=== PATIENT | male | born 1950 | race Caucasian/White ===

== ENCOUNTER 2020-03-19 10:27 | Outpatient (REF) | payer MEDICARE, SELFPAY | END 2020-03-19 10:28 | disposition home or self-care (01) | LOC: HO.LAB 10:27 | PROVIDERS: Visit Provider Internal Medicine | DX: Z20.828 Contact with and (suspected) exposure to other viral communicable diseases (principal) | CPT/HCPCS: C9803; U0003 ==

== ENCOUNTER 2021-03-21 07:17 | Day surgery (SDC) | payer MEDICARE, SELFPAY ==
--- NOTE | 2021-03-18 10:46 | P.CONAN_ITS ---
Documented by User: Barbara Matute NP 03/18/21 10:46 HPI - Anesthesia Eval Consult details Narrative: 70yo M for Upper Endoscopy and Colonoscopy [facility] Past Medical History Medical History (Updated 02/06/20 @ 15:19 by Guillermina Saenz, RN) Bales's esophagus Elevated cholesterol GERD (gastroesophageal reflux disease) HTN (hypertension) Sigmoid diverticulitis Sleep apnea Surgical History Surgical History (Updated 02/06/20 @ 15:19 by Guillermina Saenz, RN) History of bunionectomy History of esophagogastroduodenoscopy (EGD) Hx laparoscopic cholecystectomy Hx of colonoscopy Hx of shoulder surgery Hx of thumb surgery Social History Social History Are you a primary career technical education instructor to a significant other at home: No Do you presently have visiting nurse or other home services: No Patient Tobacco Use Status: Never used Tobacco Second Hand Smoke Exposure: No Use of substances other than those prescribed or required for medical reasons: No Are you DNR?: No Advance Directives: No Advance Directives Information Provided: Yes Advance Directives on File: No Meds Allergies Allergy/AdvReac Type Severity Reaction Status Date / Time RITU Inhibitors Allergy Intermediate COUGH Verified 03/14/21 15:06 [RITU INHIBITORS] latex [LATEX] Allergy Intermediate RASH-FACIAL Verified 03/14/21 15:06 rubber touching face Allergy Unknown rash Uncoded 03/14/21 15:06 Home Medications Medication Instructions Recorded Confirmed Last Taken Type Lactobacillus acidophilus 10 10,000 mmu cells PO DAILY 02/06/20 03/14/21 Unknown History billion cell capsule (Probiotic) atorvastatin 40 mg tablet 40 mg PO BEDTIME 02/06/20 03/14/21 Unknown History esomeprazole magnesium 40 mg 40 mg PO DAILY 02/06/20 03/14/21 Unknown History capsule,delayed release glucosamine sulfate 500 mg tablet 500 mg PO BID 02/06/20 03/14/21 Unknown History (Glucosamine) lisinopril 20 1 tab PO DAILY 02/06/20 03/14/21 Unknown History mg-hydrochlorothiazide 25 mg tablet Exam Exam Date and Time: March 18, 2021 1046 Assessment and Plan Assessment Anesthesia Assessment: Chart Reviewed Documented by User: Ryan French 03/21/21 10:06 [facility] Past Medical History Medical History (Updated 02/06/20 @ 15:19 by Guillermina Saenz, CHERISE) Bales's esophagus Elevated cholesterol GERD (gastroesophageal reflux disease) HTN (hypertension) Sigmoid diverticulitis Sleep apnea Functional capacity: independent ambulation Family History Family history of problems with anesthesia: No Surgical History Surgical History (Updated 02/06/20 @ 15:19 by Guillermina Saenz, RN) History of bunionectomy History of esophagogastroduodenoscopy (EGD) Hx laparoscopic cholecystectomy Hx of colonoscopy Hx of shoulder surgery Hx of thumb surgery History of Problems with Anesthesia: Yes (Awarness under [place] 20 years ago . ) Social History Social History Are you a primary career technical education instructor to a significant other at home: No Do you presently have visiting nurse or other home services: No Patient Tobacco Use Status: Never used Tobacco Second Hand Smoke Exposure: No Use of substances other than those prescribed or required for medical reasons: No Are you DNR?: No Advance Directives: No Advance Directives Information Provided: Yes Advance Directives on File: No Meds Allergies Allergy/AdvReac Type Severity Reaction Status Date / Time RITU Inhibitors Allergy Intermediate COUGH Verified 03/14/21 15:06 [RITU INHIBITORS] latex [LATEX] Allergy Intermediate RASH-FACIAL Verified 03/14/21 15:06 rubber touching face Allergy Unknown rash Uncoded 03/14/21 15:06 Home Medications Medication Instructions Recorded Confirmed Last Taken Type Lactobacillus acidophilus 10 10,000 mmu cells PO DAILY 02/06/20 03/14/21 Unknown History billion cell capsule (Probiotic) atorvastatin 40 mg tablet 40 mg PO BEDTIME 02/06/20 03/14/21 Unknown History esomeprazole magnesium 40 mg 40 mg PO DAILY 02/06/20 03/14/21 Unknown History capsule,delayed release glucosamine sulfate 500 mg tablet 500 mg PO BID 02/06/20 03/14/21 Unknown History (Glucosamine) lisinopril 20 1 tab PO DAILY 02/06/20 03/14/21 Unknown History mg-hydrochlorothiazide 25 mg tablet Exam Airway Mallampati Class: II TM Dist: >3cm Neck ROM: Full Loose/Missing/Broken Teeth: Yes (Caps and crowns ) Heart: rrr Lungs: bl breath sounds Assessment and Plan Final Anesthetic Review Family History of Problems with Anesthesia: No History of Problems with Anesthesia: Yes (Awarness under [place] 20 years ago . ) NPO: Yes ASA Class: II Final Preanesthetic Review: Meds/Allgs Chart Reviewed and Anes Risks/Benef Reviewed Patient Risk: Intermediate Procedure Risk: Intermediate Anesthetic Plan Anesthetic Plan: MAC: Disposition: Standard PACU
[2021-03-21 08:56] VITALS: BMI 27.1
[2021-03-21 09:05] VITALS: BP 178/102; PULSE 92; RESP 16; TEMP 36.5; O2SAT 99
[2021-03-21] MEDS: Lactated Ringers 1,000 ML 100 ML IVCONT (09:14)
--- NOTE | 2021-03-21 11:35 | PM.OP ---
Brief Operative Note Date of Service: 03/21/21 Pre-op diagnosis: Bales's, Screening Post-op diagnosis: other (Hiatal hernia, Colon polyps) Procedure: EGD with biopsies. Colonoscopy to the cecum with hot snare polypectomy/clipping x 2/marking with ink of ascending colon polyp, and cold snare polypectomy of proximal transverse colon polyp with clipping x 3 Surgeon: Giles Baker Anesthesia: MAC Was an Institutional Asset Manager used for this Procedure?: No Estimated blood loss (mL): 2.0 Pathology: other (A. EG Junction at 38cm B. Ascending colon polyp C.Proximal transverse colon polyp) Condition: stable Disposition: PACU
[2021-03-21 11:36] VITALS: BP 115/71; PULSE 64; RESP 15; TEMP 36.1; O2SAT 99
[2021-03-21 11:53] VITALS: BP 132/82; PULSE 74; RESP 18; TEMP 36.2; O2SAT 100
--- NOTE | 2021-03-21 20:25 | OP_ITS ---
SURGEON: Giles Baker MD INDICATIONS: The patient presents for evaluation of colorectal cancer screening, personal history of colon polyps, and Bales's esophagus. Full consent has been obtained from him for this, including risks of bleeding and perforation. PREOPERATIVE DIAGNOSIS: POSTOPERATIVE DIAGNOSIS: PROCEDURE PERFORMED: Esophagogastroduodenoscopy with biopsies, and colonoscopy to the cecum and terminal ileum with hot snare polypectomy, placement of resolution clips, marking with submucosal ink, and cold snare polypectomy. ESTIMATED BLOOD LOSS: COMPLICATIONS: ANESTHESIA: Monitored anesthesia care. ASSISTANTS: SPECIMENS: PREOPERATIVE DIAGNOSES: Gastroesophageal reflux, Bales's esophagus, personal history of colon polyps, and colorectal cancer screening. POSTOPERATIVE DIAGNOSES: Gastroesophageal reflux, Bales's esophagus, personal history of colon polyps, and colorectal cancer screening, hiatal hernia, colon polyps, diverticulosis, and internal hemorrhoids. DESCRIPTION OF PROCEDURE: The patient was placed in the left lateral decubitus position. The Olympus video gastroscope was passed in the posterior oropharynx and upper esophagus under direct vision. The scope was passed slowly into the distal esophagus. The gastroesophageal junction appeared at 38 cm. There was some very slight irregularity at this level, but no evidence of esophagitis. The scope entered into the stomach. There was a small hiatal hernia. The scope was advanced to pylorus and the duodenum was cannulated to the descending portion. The duodenum including the bulb appeared normal without mass or ulceration. Scope was withdrawn back into the stomach. The gastric antrum and body appeared normal with good peristalsis. The scope was retroflexed visualizing the proximal stomach carefully which appeared normal, without any sign of mass or ulceration. The scope was straightened. The scope was withdrawn back into the esophagus. Biopsies were obtained at the EG junction at 38 cm. Proximal to this, the esophageal mucosa appeared normal. The scope was withdrawn from the patient. He was turned around for the colonoscopy. The digital rectal exam revealed no abnormalities. The Olympus video pediatric colonoscope was entered into the rectum and advanced easily to the cecum. Once in the cecum, I did identify normal-appearing cecal pouch with appendiceal orifice and a normal-appearing ileocecal valve. The terminal ileum was cannulated and appeared normal. The scope was withdrawn back in the colon. The entire cecum and ileocecal valve appeared normal. The scope was slowly withdrawn assessing all mucosal surfaces carefully. Preparation was excellent. In the mid-ascending colon, was a somewhat lobulated and somewhat flat polyp overlapping a single fold. The tissue appeared to be consistent with either a hyperplastic polyp or a serrated polyp. It was approximately 15 mm in diameter. Given its size and appearance, with the possibility of it being a serrated polyp, I did remove it entirely with a hot snare polypectomy in piecemeal fashion. Pieces were recovered by suction. The polypectomy site appeared clean, without any sign of residual polyp nor bleeding. Two clips were applied with good deployment and good hemostasis. I also placed a submucosal ink kevin just proximal and just distal to the lesion. In the proximal transverse colon, was an approximately 6 to 8 mm polyp, which was removed with a cold snare polypectomy. The specimen was retrieved by suction. There did appear to be some persistent oozing at the polypectomy site and I therefore placed a total of 3 resolution clips with ultimately good deployment and good hemostasis. I did not visualize any other polyps, colitis, nor angiodysplasia. There was a mild amount of sigmoid diverticulosis. In the rectum, scope was retroflexed visualizing internal hemorrhoids, but no other pathology. The rectal mucosa appeared normal. The scope was straightened out and withdrawn from the patient. He tolerated both procedures well and was returned to recovery area in stable condition. IMPRESSION: 1. Hiatal hernia, gastroesophageal reflux, history of Bales's esophagus. 2. Colon polyps. 3. Diverticulosis. 4. Internal hemorrhoids. PLAN: The results of the pathology will be checked. I would recommend a repeat upper endoscopy in 3 years for further surveillance in regard to the Bales's esophagus assuming there is no dysplasia. He will continue his PPI treatment for that. Further recommendations regarding colonoscopy will depend upon the findings on the pathology of the colon polyps. If the larger ascending colon polyp is a serrated polyp, I would recommend a repeat colonoscopy within 1 year. He was advised not to use any aspirin and NSAIDs for 1 week. MD JOSHUA Leong/PAUL / [id number] KORY
== END 2021-03-21 13:03 | disposition home or self-care (01) ==
PROVIDERS: PCP Physician Assistant Medical; Visit Provider Internal Medicine
PROC: (CPT 45385; principal; 2021-03-21 09:20)
DX: Z12.11 Encounter for screening for malignant neoplasm of colon (principal); Z86.010 Personal history of colon polyps; Z83.71 Family history of colonic polyps; D12.2 Benign neoplasm of ascending colon; D12.3 Benign neoplasm of transverse colon; K57.30 Diverticulosis of large intestine without perforation or abscess without bleeding; K64.8 Other hemorrhoids; K22.70 Barrett's esophagus without dysplasia; K21.9 Gastro-esophageal reflux disease without esophagitis; K44.9 Diaphragmatic hernia without obstruction or gangrene; Z87.19 Personal history of other diseases of the digestive system; G47.33 Obstructive sleep apnea (adult) (pediatric); E78.5 Hyperlipidemia, unspecified; I10 Essential (primary) hypertension; Z79.899 Other long term (current) drug therapy
CPT/HCPCS: 45385; 45381; 43239; 88305

== ENCOUNTER 2023-01-29 07:10 | Day surgery (SDC) | payer MEDICARE, SELFPAY ==
--- NOTE | 2023-01-25 13:52 | P.CONAN_ITS ---
Documented by User: Barbara Matute NP 01/25/23 13:53 HPI - Anesthesia Eval Consult details Narrative: 72yo M for Colonoscopy [facility] Past Medical History Medical History HLD (hyperlipidemia) Sleep apnea Sigmoid diverticulitis Bales's esophagus GERD (gastroesophageal reflux disease) Elevated cholesterol HTN (hypertension) Family History Family history of problems with anesthesia: No Surgical History Surgical History History of back surgery Hx of thumb surgery History of bunionectomy Hx of shoulder surgery Hx laparoscopic cholecystectomy History of esophagogastroduodenoscopy (EGD) Hx of colonoscopy History of Problems with Anesthesia: Yes (Awarness under [place] 20 years ago . ) Social History Social History Are you a primary lawn care technician to a significant other at home: No Do you presently have visiting nurse or other home services: No Patient Tobacco Use Status: Former Tobacco user Second Hand Smoke Exposure: No Substance Use Frequency: Daily Have you been hit, kicked, punched, or otherwise hurt by someone within the past year? If so, by whom?: No Are you DNR?: No Advance Directives: No Advance Directives Information Provided: Yes Recently lost weight without trying: No Eating poorly because of decreased appetite: No Nutrition Risks: No Nutritional Risk Poor oral hygiene: No Meds Allergies Allergy/AdvReac Type Severity Reaction Status Date / Time RITU Inhibitors Allergy Intermediate COUGH Verified 03/14/21 15:06 [RITU INHIBITORS] latex [LATEX] Allergy Intermediate RASH-FACIAL Verified 03/14/21 15:06 rubber touching face Allergy Unknown rash Uncoded 03/14/21 15:06 Home Medications Medication Instructions Recorded Confirmed Last Taken Type atorvastatin 40 mg tablet 40 mg PO BEDTIME 02/06/20 03/14/21 Unknown History esomeprazole magnesium 40 mg 40 mg PO DAILY 02/06/20 03/14/21 Unknown History capsule,delayed release lisinopril 20 1 tab PO DAILY 02/06/20 03/14/21 Unknown History mg-hydrochlorothiazide 25 mg tablet psyllium packet 01/26/23 01/26/23 Unknown History Exam Exam Date and Time: January 25, 2023 1352 Assessment and Plan Assessment Anesthesia Assessment: Chart Reviewed Final Anesthetic Review Family History of Problems with Anesthesia: No History of Problems with Anesthesia: Yes (Awarness under [place] 20 years ago . ) Documented by User: Tracy Arceo MD 01/29/23 09:20 [facility] Active Problems Active Problems: FARTUN. Not using CPAP. Cannot tolerate HTN GERD HLD Past Medical History Medical History HLD (hyperlipidemia) Sleep apnea Sigmoid diverticulitis Bales's esophagus GERD (gastroesophageal reflux disease) Elevated cholesterol HTN (hypertension) Surgical History Surgical History History of back surgery Hx of thumb surgery History of bunionectomy Hx of shoulder surgery Hx laparoscopic cholecystectomy History of esophagogastroduodenoscopy (EGD) Hx of colonoscopy History of Problems with Anesthesia: Yes (Awareness under [place] 20 years ago . ) Social History Social History Are you a primary lawn care technician to a significant other at home: No Do you presently have visiting nurse or other home services: No Patient Tobacco Use Status: Former Tobacco user Second Hand Smoke Exposure: No Substance Use Frequency: Daily Have you been hit, kicked, punched, or otherwise hurt by someone within the past year? If so, by whom?: No Are you DNR?: No Advance Directives: No Advance Directives Information Provided: Yes Recently lost weight without trying: No Eating poorly because of decreased appetite: No Nutrition Risks: No Nutritional Risk Poor oral hygiene: No Meds Allergies Allergy/AdvReac Type Severity Reaction Status Date / Time RITU Inhibitors Allergy Intermediate COUGH Verified 03/14/21 15:06 [RITU INHIBITORS] latex [LATEX] Allergy Intermediate RASH-FACIAL Verified 03/14/21 15:06 rubber touching face Allergy Unknown rash Uncoded 03/14/21 15:06 Home Medications Medication Instructions Recorded Confirmed Last Taken Type atorvastatin 40 mg tablet 40 mg PO BEDTIME 02/06/20 03/14/21 Unknown History esomeprazole magnesium 40 mg 40 mg PO DAILY 02/06/20 03/14/21 Unknown History capsule,delayed release lisinopril 20 1 tab PO DAILY 02/06/20 03/14/21 Unknown History mg-hydrochlorothiazide 25 mg tablet psyllium packet 01/26/23 01/26/23 Unknown History Exam Height,Weight and Vital Signs: Height 6 ft Weight 90.718 kg Vital Signs Temp Pulse Resp BP Pulse Ox O2 Del Method 01/29/23 08:24 97.3 F 78 18 169/98 H 98 Room Air Airway Mallampati Class: II TM Dist: >3cm Neck ROM: Full (Good extension ) Loose/Missing/Broken Teeth: Yes (Missing some teeth. Denies broken or loose teeth) Heart: RRR Lungs: CTAB Assessment and Plan Assessment Anesthesia Assessment: Anesthesia Plan Discussed Final Anesthetic Review History of Problems with Anesthesia: Yes (Awareness under [place] 20 years ago . ) NPO: Yes ASA Class: III Final Preanesthetic Review: No Changes in Pt Med Stat, Meds/Allgs Chart Reviewed, Consent Obtained/Reviewed and Anes Risks/Benef Reviewed Patient Risk: Intermediate Procedure Risk: Low Assessment/Block/Sedation in SS: Assess/Block/Sedation-SS Anesthetic Plan Anesthetic Plan: MAC: Disposition: Standard PACU
[2023-01-29 08:24] VITALS: BP 169/98; PULSE 78; RESP 18; TEMP 36.3; O2SAT 98; BMI 27.1
[2023-01-29] MEDS: Lactated Ringers 1,000 ML 100 ML IVCONT (08:29)
[2023-01-29 09:59] VITALS: BP 132/71; PULSE 75; RESP 13; TEMP 36.1; O2SAT 100
--- NOTE | 2023-01-29 10:02 | P.BOP_ITS ---
Brief Operative Note Date of Service: 01/29/23 Pre-op diagnosis: Screening Post-op diagnosis: other (Colon polyp) Procedure: Colonoscopy to the cecum and TI with hot snare polypectomy x 1, and biopsies Surgeon: Giles Baker MD Anesthesia: MAC Was an Bench Inspector used for this Procedure?: No Estimated blood loss (mL): 2.0 Pathology: other (A. Biopsies from previous polypectomy site in proximal Ascending Colon B. Proximal Ascending colon polyp) Condition: stable
[2023-01-29 10:14] VITALS: BP 119/77; PULSE 63; RESP 15; O2SAT 100
[2023-01-29 10:29] VITALS: BP 119/97; PULSE 60; RESP 16; TEMP 36.2; O2SAT 100
--- NOTE | 2023-01-29 11:48 | OP_ITS ---
DATE OF SERVICE: 01/29/2023 SURGEON: Giles Baker MD INDICATIONS: The patient presents for followup of personal history of colon polyps and colorectal cancer screening. Full consent obtained from him for this, including risks of bleeding and perforation. PREOPERATIVE DIAGNOSIS: POSTOPERATIVE DIAGNOSIS: PROCEDURE PERFORMED: Colonoscopy to cecum and terminal ileum with hot snare polypectomy, and biopsies. ESTIMATED BLOOD LOSS: COMPLICATIONS: ANESTHESIA: Monitored anesthesia care. ASSISTANTS: SPECIMENS: PREOPERATIVE DIAGNOSES: Colorectal cancer screening and personal history of colon polyps. POSTOPERATIVE DIAGNOSES: Colorectal cancer screening and personal history of colon polyps, colon polyp, diverticulosis and internal hemorrhoids. DESCRIPTION OF PROCEDURE: The patient was placed in the left lateral decubitus position. The digital rectal exam revealed no abnormalities. The Olympus video pediatric colonoscope was entered into the rectum and advanced easily to the cecum. Once in the cecum, I did identify normal-appearing cecal pouch with appendiceal orifice and a normal-appearing ileocecal valve. The terminal ileum was cannulated and appeared normal. The scope was withdrawn back in the colon. The entire cecum and ileocecal valve appeared normal. The scope was then slowly withdrawn assessing all mucosal surfaces carefully. Preparation was excellent. In the proximal ascending colon the previously placed submucosal ink barraza were noted. Right in between those was an area of some scarring, consistent with a previous polypectomy. There was 1 small, several mm area of possibly some residual polyp in the area of scarring, although I suspect this was some benign tissue. Biopsies were obtained from it and completely removed it. In the proximal ascending colon, near the most proximal ink kevin, but separate from the polypectomy site, was an approximately 1.2 cm raised, but lobulated probable serrated polyp, which was removed by hot snare polypectomy and recovered by suction. The polypectomy site appeared clean, without any sign of residual polyp nor bleeding. I did not visualize any other polyps, colitis, nor angiodysplasia. There was a moderate amount of sigmoid diverticulosis. In the rectum, scope was retroflexed visualizing prominent internal hemorrhoids, but no other pathology. The rectal mucosa appeared normal. Scope was straightened and withdrawn from the patient. He tolerated the procedure well and was returned to recovery area in stable condition. IMPRESSION: 1. Colon polyp. 2. Diverticulosis. 3. Internal hemorrhoids. PLAN: The results of the pathology will be checked. Given his previous history and today's findings, I would recommend a repeat colonoscopy within 2-3 years. He was advised not to use any aspirin or NSAIDs for at least 1 week. He will otherwise see me on a p.r.n. basis. MD JOSHUA Leong/PAUL / [id number] MTDD
== END 2023-01-29 11:27 | disposition home or self-care (01) ==
PROVIDERS: PCP Physician Assistant Medical; Visit Provider Internal Medicine
PROC: 0DJD8ZZ Inspection of Lower Intestinal Tract, Via Natural or Artificial Opening Endoscopic (ICD-10-PCS; CPT 45378; principal; 2023-01-29 08:30)
DX: Z12.11 Encounter for screening for malignant neoplasm of colon (principal); Z86.010 Personal history of colon polyps; D12.2 Benign neoplasm of ascending colon; K57.30 Diverticulosis of large intestine without perforation or abscess without bleeding; Z87.19 Personal history of other diseases of the digestive system; K64.8 Other hemorrhoids; K21.9 Gastro-esophageal reflux disease without esophagitis; E78.5 Hyperlipidemia, unspecified; I10 Essential (primary) hypertension; K22.70 Barrett's esophagus without dysplasia; G47.33 Obstructive sleep apnea (adult) (pediatric); Z79.899 Other long term (current) drug therapy; Z88.8 Allergy status to other drugs, medicaments and biological substances; Z91.040 Latex allergy status; Z87.891 Personal history of nicotine dependence; Z98.890 Other specified postprocedural states
CPT/HCPCS: 45385; 45380; 88305

== ENCOUNTER 2023-02-12 09:53 | Outpatient (AMB) | payer MEDICARE, SELFPAY ==
--- NOTE | 2023-02-12 09:54 | MHC.OFFVIS ---
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 He states his pain started a few months ago and denies injury. He had x rays updated in the office today. He has not tried any ice, heat or over the counter medications. 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 He has pain with daily activity, worse with using stairs or standing from a seated position. He says his pain began several months ago and has worsened. He says his pain varies between an ache and a burning sensation in the front of his knees. He denies any numbness or tingling. He denies any prior treatment. He denies any falls or known injury. He is not interested in surgery, most of his time is spent caring for his , who has Alzheimers. [facility] Medical History HLD (hyperlipidemia) Sleep apnea Sigmoid diverticulitis Bales's esophagus GERD (gastroesophageal reflux disease) Elevated cholesterol HTN (hypertension) Surgical History History of back surgery Hx of thumb surgery History of bunionectomy Hx of shoulder surgery Hx laparoscopic cholecystectomy History of esophagogastroduodenoscopy (EGD) Hx of colonoscopy Social History Are you a primary transition of care specialist to a significant other at home: No Do you presently have visiting nurse or other home services: No Patient Tobacco Use Status: Former Tobacco user Second Hand Smoke Exposure: No Review of Systems Const All systems reviewed & are unremarkable except as noted in HPI and below Physical Exam Const General: no acute distress, alert and awake Orientation/consciousness: patient oriented x3 HEENT Head: Yes normocephalic and Yes atraumatic Eyes EOM: EOMs intact bilaterally Resp Effort & Inspection: normal respiratory effort and able to speak in complete sentences Cardio Jugular venous distension: no JVD Skin General skin exam: turgor normal Rashes: no rashes Neuro General: patient oriented x3 Extrem Other: nl gait full rom retropatellar ttp, mild, R>L Psych Appearance: grossly normal Affect: normal affect Attitude: cooperative Results Reviewed Results Reviewed: Mild bilateral PF OA. Otherwise unremarkable Assessment & Plan Assessment & Plan (1) Osteoarthritis of right knee: Code(s): M17.11 - Unilateral primary osteoarthritis, right knee Plan: This is a 72 year old man with bilateral knee PF OA. He has some pain with daily activity, worse with standing from a seated position or using stairs. He denies any prior treatment. I discussed his diagnosis and treatment options. He is not particularly limited in his function and his pain is tolerable, he is not interested in injections today. I recommend NSAIDs and he be mindful to not push through pain. If his symptoms persist or worsen he can follow up to discuss injections. Otherwise, follow up prn. (2) Osteoarthritis of left knee: Code(s): M17.12 - Unilateral primary osteoarthritis, left knee Plan Scribed for Anthony Ludwig MD by Julio Kahn, medical assistant, on 02/12/23 at 10:15 AM, EST. Orders: Orders XR knee RT 2V 02/12/23 M25.569 - Pain in unspecified knee XR knee standing BI 02/12/23 M25.569 - Pain in unspecified knee XR knee LT 2V 02/12/23 M25.569 - Pain in unspecified knee Coding Level of Care Code New Pt Level 3 (84860) Diagnoses Osteoarthritis of right knee M17.11 Osteoarthritis of left knee M17.12
== END 2023-02-12 10:34 | disposition home or self-care (01) ==
PROVIDERS: PCP Physician Assistant Medical; Visit Provider Orthopaedic Surgery
DX: M17.0 Bilateral primary osteoarthritis of knee (principal)
CPT/HCPCS: 99203

== ENCOUNTER 2023-02-12 09:53 | Outpatient (REF) | payer MEDICARE, SELFPAY ==
--- NOTE | ~2023-02-12 | XR_ITS ---
EXAMINATION: XR KNEE STANDING, BILATERAL XR KNEE, RIGHT XR KNEE, LEFT CLINICAL INFORMATION: Knee pain. COMPARISON: None available. TECHNIQUE: Bilateral standing AP views of the knees with two additional views of each knee. FINDINGS: No significant abnormality is seen involving bones, joints or soft tissues. No chondrocalcinosis. No significant joint space narrowing. No joint effusions. XR/XR knee LT 2V IMPRESSION: Unremarkable examination.
--- NOTE | ~2023-02-12 | XR_ITS ---
EXAMINATION: XR KNEE STANDING, BILATERAL XR KNEE, RIGHT XR KNEE, LEFT CLINICAL INFORMATION: Knee pain. COMPARISON: None available. TECHNIQUE: Bilateral standing AP views of the knees with two additional views of each knee. FINDINGS: No significant abnormality is seen involving bones, joints or soft tissues. No chondrocalcinosis. No significant joint space narrowing. No joint effusions. XR/XR knee standing BI IMPRESSION: Unremarkable examination.
--- NOTE | ~2023-02-12 | XR_ITS ---
EXAMINATION: XR KNEE STANDING, BILATERAL XR KNEE, RIGHT XR KNEE, LEFT CLINICAL INFORMATION: Knee pain. COMPARISON: None available. TECHNIQUE: Bilateral standing AP views of the knees with two additional views of each knee. FINDINGS: No significant abnormality is seen involving bones, joints or soft tissues. No chondrocalcinosis. No significant joint space narrowing. No joint effusions. XR/XR knee RT 2V IMPRESSION: Unremarkable examination.
== END 2023-02-12 09:54 | disposition home or self-care (01) ==
LOC: HO.HOSX 09:53
PROVIDERS: PCP Physician Assistant Medical; Visit Provider Orthopaedic Surgery
DX: M17.0 Bilateral primary osteoarthritis of knee (principal); Z79.899 Other long term (current) drug therapy
CPT/HCPCS: 73560; 73565; 99202

== ENCOUNTER 2024-02-18 10:38 | Emergency (ER) | payer MEDICARE, SELFPAY ==
--- NOTE | ~2024-02-18 | CT_ITS ---
EXAMINATION: CT ABDOMEN AND PELVIS WITH CONTRAST CLINICAL INFORMATION: Left lower quadrant abdominal pain with history of diverticulitis COMPARISON: CT abdomen pelvis 12/19/16 TECHNIQUE: Multidetector volumetric imaging was performed from the superior aspect of the liver through the pubic symphysis with intravenous contrast. A total of 85 mL of Omnipaque 350 was utilized for the study. Sagittal and coronal reformatted images were obtained on the technologist's workstation. This CT examination was performed using dose optimization techniques as appropriate, variously including the following: *Automated exposure control *Adjustment of mA and/or kV according to patient size (this includes techniques or standardized protocols for targeted exams where dose is matched to indication/reason for exam; i.e. extremities or head) *Use of iterative reconstruction technique DLP: 631 mGy-cm FINDINGS: LUNG BASES: There is some mild bronchial thickening and traction bronchiectasis at the lung bases no worrisome lung masses. Heart size normal. LIVER, GALLBLADDER, AND BILIARY TREE: The liver is normal in size, shape, and attenuation. No focal hepatic lesion or biliary ductal dilatation is present. Status post cholecystectomy. PANCREAS: Unremarkable. SPLEEN: Unremarkable. ADRENAL GLANDS: Unremarkable. KIDNEYS AND URETERS: The kidneys are normal in size, shape, and attenuation. No hydronephrosis, hydroureter, or calculi seen. No perinephric stranding. A benign right-sided 1.8 cm Bosniak class I renal cyst is noted which requires no additional imaging or follow up. No solid renal masses are seen. BLADDER: Unremarkable. GASTROINTESTINAL TRACT: At the junction of the descending colon and sigmoid, there is an area of marked colonic diverticulosis with inflammatory changes surrounding this region. Inflammatory change extends into the left inguinal canal along a fat-containing hernia. The possibility of marked epiploic appendagitis causing this appearance cannot be entirely excluded. No drainable fluid collections are seen. No extraluminal air is seen. The small and large bowel are unremarkable. The appendix is unremarkable. ABDOMINAL WALL: Left inguinal hernia present with marked inflammatory change in the fat. LYMPH NODES: No retroperitoneal lymphadenopathy VASCULAR: Calcific atherosclerotic changes are present in the aorta and iliofemoral vessels. There is no evidence of an abdominal aortic aneurysm. PELVIC VISCERA: Minimal BPH. Seminal vesicles appear normal . OSSEOUS STRUCTURES: Mild degenerative changes are present in the spine. No bony destructive lesions. CT/CT abdomen pelvis w IV con IMPRESSION: 1. Acute diverticulitis at the junction of the descending colon and sigmoid colon with inflammatory changes extending into the left inguinal canal along a fat-containing hernia. See discussion above regarding epiploic appendagitis . No drainable fluid collections are seen. 2. Other incidental findings as described above. Fleischner guidelines were followed. Electronically signed by: Harry Pastrana MD 02/18/2024 02:34 PM JASON
[2024-02-18 10:52] VITALS: BP 158/103; PULSE 115; RESP 16; TEMP 36.6; O2SAT 96; BMI 28.6
[2024-02-18 11:03] LABS: MANUAL DIFF FLAG NO
[2024-02-18 11:04] LABS: Basophils Absolute Auto 0.1 X10*3/uL (0.0-0.2); Basophils Percent Auto 0.5 % (0-2); Eosinophils Absolute Auto 0.1 X10*3/uL (0.0-0.4); Eosinophils Percent Auto 0.5 % (0-4); Hematocrit 51.6 % (42.0-52.0); Hemoglobin 18.3 g/dl (14.0-18.0); Imm Gran Abs Auto 0.05 X10*3/uL (0.00-0.03); Imm Gran Pct Auto 0.4 % (0.0-0.4); Lymphocytes Absolute Auto 1.3 X10*3/uL (1.2-4.9); Lymphocytes Percent Auto 9.6 % (20-40); Mean Corpuscular HGB Conc 35.5 g/dl (31.0-36.0); Mean Corpuscular Hemoglobin 31.6 pg (27.0-33.0); Mean Corpuscular Volume 89.1 fL (80.0-98.0); Mean Platelet Volume 9.8 fL (9.4-12.4); Monocytes Absolute Auto 1.5 X10*3/uL (0.1-1.2); Monocytes Percent Auto 10.8 % (2-11); Neutrophils Absolute Auto 10.5 x10*3/uL (2.0-8.3); Neutrophils Percent Auto 78.2 % (45-73); Platelet Count 229 X10*3/uL (160-400); Red Blood Count 5.79 X10*6/uL (4.60-5.80); White Blood Count 13.5 X10*3/uL (4.8-10.8)
[2024-02-18 11:28] LABS: Anion Gap 16 (12-20); Blood Urea Nitrogen 18 mg/dL (9-16); Calcium 10.9 mg/dL (8.4-10.2); Carbon Dioxide 23 mmol/L (22-29); Chloride 104 mmol/L (96-108); Creatinine Clr Calc Pharmacy 74.8; Estimated Glomerular Filt Rate > 60; Glucose Random 113 mg/dL (60-115); Potassium 3.6 mmol/L (3.3-5.1); Sodium 139 mmol/L (135-145)
--- NOTE | 2024-02-18 12:05 | ED_ITS ---
HPI - General Adult General Chief complaint: Abdominal Pain Stated complaint: abd Pain Time Seen by Provider: 02/18/24 12:04 Source: patient Mode of arrival: ambulatory Limitations: no limitations History of Present Illness ED Provider: Gabriela KLEIN narrative: Patient is a 73-year-old male with history of sigmoid diverticulitis, Dayton's esophagus, GERD, HTN, HLD, sleep apnea presenting to the ED with complaint of left lower quadrant abdominal pain since Sunday afternoon. States that he is prescribed Cipro and Flagyl by his PCP and started taking both on Sunday afternoon. Also reports an episode of diverticulitis around one month ago. States that typically his symptoms improve within 3 days of starting antibiotics, but last month, it took a full 10 days for his symptoms to improve. He took the cipro/flagyl at that time as well. Denies nausea, vomiting, diarrhea or constipation. Denies urinary symptoms. Denies fevers. States pain is consistent with prior episodes of diverticulitis. complaint: abdominal pain Onset (ago): day(s) Location: abdomen Radiation: non-radiation Severity: severe Quality: sharp Pain Consistency: constant Treatments prior to arrival: other Related Data Home Medications ?Medication ?Instructions ?Recorded ?Confirmed atorvastatin 40 mg tablet 40 mg PO BEDTIME 02/06/20 02/12/23 esomeprazole magnesium 40 mg 40 mg PO DAILY 02/06/20 02/12/23 capsule,delayed release lisinopril 20 1 tab PO DAILY 02/06/20 02/12/23 mg-hydrochlorothiazide 25 mg tablet psyllium packet 01/26/23 02/12/23 Previous Rx's ?Medication ?Instructions ?Recorded amoxicillin 875 mg-potassium 1 tab PO TID 10 days #30 tabs 02/18/24 clavulanate 125 mg tablet Allergies Allergy/AdvReac Type Severity Reaction Status Date / Time RITU Inhibitors Allergy Intermediate COUGH Verified 02/18/24 10:54 [RITU INHIBITORS] latex [LATEX] Allergy Intermediate RASH-FACIAL Verified 02/18/24 10:54 rubber touching face Allergy Unknown rash Uncoded 02/18/24 10:54 Review of Systems 2 Review of Systems: As per HPI. Yes all other systems are reviewed and are negative Constitutional: Constitutional: Reports as per HPI PMFSH Past Medical History Medical History HLD (hyperlipidemia) Sleep apnea Sigmoid diverticulitis Bales's esophagus GERD (gastroesophageal reflux disease) Elevated cholesterol HTN (hypertension) Surgical History History of back surgery Hx of thumb surgery History of bunionectomy Hx of shoulder surgery Hx laparoscopic cholecystectomy History of esophagogastroduodenoscopy (EGD) Hx of colonoscopy Social History Social History Are you a primary career technical counselor to a significant other at home: No Do you presently have visiting nurse or other home services: No Patient Tobacco Use Status: Former Tobacco user Second Hand Smoke Exposure: No Advance Directives: No Advance Directives Information Provided: Yes Do you have a plan to hurt others: No Plan Physical Exam ED Vital Signs: Vital Signs - 24 hr 02/18/24 10:52 02/18/24 12:10 02/18/24 14:07 Temperature 97.9 F Pulse Rate 115 H 109 H 93 Respiratory Rate 16 16 16 Blood Pressure 158/103 H 139/90 H 137/86 Pulse Oximetry 96 98 97 Oxygen Delivery Method Room Air Room Air Room Air BMI result Body Mass Index 28.6 Vital signs have been reviewed and appear to be correct. Blood pressure elevated. Heart rate mildly tachycardic. Respiratory rate normal. Temperature normal. Oxygen saturation normal. Const General: cooperative, healthy appearing and no acute distress Orientation/consciousness: oriented to person, oriented to place, oriented to time and patient oriented x3 Limitations: no limitations HENMT Head: Yes normocephalic and Yes atraumatic Ears: external ears normal General nose exam: Normal external nose present Face and sinus: Yes face symmetric Mouth: oropharynx normal and moist mucous membranes Throat: Yes uvula midline Eyes Pupils: Equal, round and reactive pupils present Neck Neck: Yes normal visual inspection and Yes supple Resp Effort & Inspection: normal respiratory effort and able to speak in complete sentences Auscultation: clear to auscultation bilaterally Cardio Rate: regular rate Rhythm: regular rhythm Heart sounds: S1 normal heart sound present and S2 normal heart sound present GI Palpation (GI): Soft to palpation, Tenderness to palpation present (GI) in the LLQ, no guarding and No Rebound tenderness present Auscultation: normoactive bowel sounds General: Yes no CVA tenderness Back/Spine/Pelvis Back: no CVA tenderness Skin General skin exam: elasticity normal and turgor normal Neuro General: oriented to person, oriented to place, oriented to time, patient oriented x3, moves all extremities, no focal motor deficits and CN's II-XI intact bilaterally Cranial nerves: Yes Equal, round and reactive pupils present Cognition (Neuro): normal cognition Extrem General: Yes full ROM, Yes no pedal edema and Yes no calf tenderness Psych Mental Status: mental status grossly normal Affect: normal affect Thought process: Normal thought process present Medications Administered Discontinued Medications Generic Name Dose Route Start Last Admin Trade Name Freq PRN Reason Stop Dose Admin Iohexol 85 ml 02/18/24 12:46 02/18/24 12:46 Iohexol 350 Mg/Ml 100 Ml Infus..Btl IV 02/18/24 12:47 85 ml ONCE ONE Administration Medical Decision Making Medical Decision Making [facility] Narrative: Patient is a 73-year-old male with history of sigmoid diverticulitis, Dayton's esophagus, GERD, HTN, HLD, sleep apnea presenting to the ED with complaint of left lower quadrant abdominal pain since Sunday afternoon. On exam patient is awake, A+Ox3, mildly tachycardic with elevated BP, VS otherwise WNL, afebrile, normal neurological exam without focal deficits, physical exam findings as above. Given reported symptoms and physical exam findings, initial differential includes diverticulitis, abscess, perforation. Less likely obstruction. Labs notable for mild leukocytosis, otherwise unremarkable. CT A/P notable for acute diverticulitis of descending colon and sigmoid colon as well as epiploic appendagitis, no abscess or perforation. My interpretation is in agreement with the radiologist's interpretation. Results discussed with patient and all questions answered. Will start patient on Augmentin, advised him to discontinue the Cipro and Flagyl. Also advised patient to use ibuprofen every 6 hours as needed for pain as well as to decrease inflammation. Follow-up with PCP. Return precautions discussed. Patient verbalized understanding of and agreement with plan. Differential Diagnosis Differential Diagnoses: The differential diagnosis associated with the presentation includes As per MDM. Admission/Observation Consideration of admission/observation: Escalation of care including admission/observation considered Patient would have been admitted to the hospital had their work up had any findings where hospital admission was appropriate and their clinical presentation warranted hospital admission. Lab Data [facility] Lab Attestation statement: I reviewed the patient's lab results. As per [facility] 02/18/24 10:59 02/18/24 10:59 Labs: Lab Results 02/18/24 Range/Units 10:59 WBC 13.5 H (4.8-10.8) X10*3/uL RBC 5.79 (4.60-5.80) X10*6/uL Hgb 18.3 H (14.0-18.0) g/dl Hct 51.6 (42.0-52.0) % MCV 89.1 (80.0-98.0) fL MCH 31.6 (27.0-33.0) pg MCHC 35.5 (31.0-36.0) g/dl RDW 13.0 (11.0-16.0) % Plt Count 229 (160-400) X10*3/uL MPV 9.8 (9.4-12.4) fL Immature Gran % (Auto) 0.4 (0.0-0.4) % Neut % (Auto) 78.2 H (45-73) % Lymph % (Auto) 9.6 L (20-40) % [place] % (Auto) 10.8 (2-11) % Eos % (Auto) 0.5 (0-4) % Baso % (Auto) 0.5 (0-2) % Lymph # (Auto) 1.3 (1.2-4.9) X10*3/uL [place] # (Auto) 1.5 H (0.1-1.2) X10*3/uL Eos # (Auto) 0.1 (0.0-0.4) X10*3/uL Baso # (Auto) 0.1 (0.0-0.2) X10*3/uL Abs Immat Gran (auto) 0.05 H (0.00-0.03) X10*3/uL Absolute Neuts (auto) 10.5 H (2.0-8.3) x10*3/uL Absolute Nucleated RBC 0.000 (0.0-0.012) X10*3/uL Nucleated RBC % (auto) 0.0 (0.0-0.2) /100WBC Sodium 139 (135-145) mmol/L Potassium 3.6 (3.3-5.1) mmol/L Chloride 104 (96-108) mmol/L Carbon Dioxide 23 (22-29) mmol/L Anion Gap 16 (12-20) BUN 18 H (9-16) mg/dL Creatinine 1.04 (0.5-1.4) mg/dL Estim Creat Clear Calc 74.8 Estimated GFR > 60 Random Glucose 113 (60-115) mg/dL Calcium 10.9 H (8.4-10.2) mg/dL Independent Interpretation I performed an independent interpretation of an: CT Scan Interpretation: CT A/P notable for acute diverticulitis of descending colon and sigmoid colon as well as epiploic appendagitis, no abscess or perforation. Radiology Impression Discussion of test interpretation with radiology: I have reviewed the radiologist's reading. Radiologist Impression: CT/CT abdomen pelvis w IV con IMPRESSION: 1. Acute diverticulitis at the junction of the descending colon and sigmoid colon with inflammatory changes extending into the left inguinal canal along a fat-containing hernia. See discussion above regarding epiploic appendagitis . No drainable fluid collections are seen. 2. Other incidental findings as described above. External Record Review External record reviewed: Inpatient record, Office record and Outpatient record Prescription Management I considered prescription management with: Antibiotic Discharge Plan Discharge Clinical Impression: Diverticulitis, Epiploic appendagitis Patient Disposition: Home, Self-Care Instructions: Amoxicillin/Clavulanate Potassium (By mouth), Diverticulitis (ED), Diverticulitis Diet (ED) Additional Instructions: You were evaluated in the emergency department today for abdominal pain. Your CT scan showed diverticulitis without evidence of an abscess or perforation. You are being treated with an antibiotic called Augmentin. Complete the full course as prescribed even if your symptoms improve. STOP taking the metronidazole and ciprofloxacin. We recommend that your take 600mg ibuprofen every 6 hours as needed for pain. Follow up with your primary care provider. Return you the emergency department if you develop worsening pain, persistent vomiting, fever 100.4? F or greater or any other concerning symptoms. Prescriptions: New amoxicillin-pot clavulanate 875-125 mg tablet 1 tab PO TID 10 Days Qty: 30 0RF No Action atorvastatin 40 mg Tablet 40 mg PO BEDTIME esomeprazole magnesium 40 mg Capsule,Delayed Release(Dr/Ec) 40 mg PO DAILY lisinopril-hydrochlorothiazide 20-25 mg Tablet 1 tab PO DAILY Metamucil Packet Print Language: Yi
[2024-02-18 12:10] VITALS: BP 139/90; PULSE 109; RESP 16; O2SAT 98
[2024-02-18] MEDS: iohexoL 350 MG/ML 100 ML INFUS..BTL 85 ML IV (12:46)
[2024-02-18 14:07] VITALS: BP 137/86; PULSE 93; RESP 16; O2SAT 97
[2024-02-18 15:11] VITALS: BP 137/86; PULSE 93; RESP 16; TEMP 36.6; O2SAT 97
== END 2024-02-18 15:12 | disposition home or self-care (01) ==
PROVIDERS: Emergency Provider Student in an Organized Health Care Education/Training Program; PCP Physician Assistant Medical
DX: K57.92 Diverticulitis of intestine, part unspecified, without perforation or abscess without bleeding (principal); K63.89 Other specified diseases of intestine; R10.32 Left lower quadrant pain; I10 Essential (primary) hypertension; K21.9 Gastro-esophageal reflux disease without esophagitis; G47.30 Sleep apnea, unspecified; K22.70 Barrett's esophagus without dysplasia; Z79.899 Other long term (current) drug therapy
CPT/HCPCS: 36415; 74177; 80048; 85025; 99284; Q9967